=== PATIENT | male | born 1990 | race Caucasian/White ===

== ENCOUNTER 2019-07-10 00:02 | Emergency (ER) | payer BC ==
[2019-07-10 00:09] VITALS: BP 139/89; PULSE 82; RESP 18; TEMP 98.2
[2019-07-10] MEDS ORDERED: RABIES VACCINE (PCEC) 2.5 UNIT KIT IM ONE (00:25)
[2019-07-10] MEDS ORDERED: RABIES IMMUNE GLOB 300 UNIT/ML 5 ML VIAL IM ONE (00:25)
[2019-07-10] MEDS ORDERED: AMOXIC-POT CLAV 875MG STARTER 2 EACH TABLET PO STA (00:57)
--- NOTE | 2019-07-10 00:59 | ED ---
Animal Bite HPI - General Chief Complaint: Animal Bite Stated Complaint: Cat bite Time Seen by Provider: 07/10/19 00:13 Source: patient Mode of arrival: ambulatory Limitations: no limitations - History of Present Illness Initial Comments: 28-year-old male patient presents to the emergency department today for evaluation of a cat bite. Patient states that he was pulling some stray kittens from beneath a home when one bit his left index finger. Patient states he did clean the area. Patient states that his tetanus is up-to-date in the last year. Patient denies any other injuries. Patient is concerned about rabies and would like to be vaccinated.Patient denies any headache, neck pain, back pain, chest pain, shortness of breath, dizziness, weakness, abdominal pain, nausea, vomiting, or difficulties with bowel movements or urination. - Related Data Previous Rx's Medication Instructions Recorded Amoxic-Pot Clav 875-125Mg 1 tab PO Q12HR #14 tablet 07/10/19 [Augmentin 875-125] Allergies Allergy/AdvReac Type Severity Reaction Status Date / Time No Known Allergies Allergy Verified 07/10/19 00:09 Review of Systems ROS Statement: Those systems with pertinent positive or pertinent negative responses have been documented in the HPI. ROS Other: All systems not noted in ROS Statement are negative. Past Medical History Past Medical History: No Reported History History of Any Multi-Drug Resistant Organisms: None Reported Past Surgical History: No Surgical Hx Reported Past Psychological History: No Psychological Hx Reported Smoking Status: Former smoker Past Alcohol Use History: Occasional Past Drug Use History: None Reported General Exam Limitations: no limitations General appearance: alert, in no apparent distress, other (This is a well- developed, well-nourished adult male patient in no acute distress. Vital signs upon presentation are temperature 98.2F, pulse 82, respirations 18, blood pressure 139/89, pulse ox 98% on room air.) Respiratory exam: Present: normal lung sounds bilaterally. Absent: respiratory distress, wheezes, rales, rhonchi, stridor Cardiovascular Exam: Present: regular rate, normal rhythm, normal heart sounds. Absent: systolic murmur, diastolic murmur, rubs, gallop, clicks Extremities exam: Present: full ROM, normal capillary refill, other (There is a puncture wound noted to the left index finger over the distal palmar surface. Skin is otherwise pink, warm, dry. Cap refills less than 3 seconds. Radial pulses 2+ and equal bilaterally.). Absent: normal inspection, tenderness, pedal edema, joint swelling, calf tenderness Neurological exam: Present: alert, oriented X3, CN II-XII intact Psychiatric exam: Present: normal affect, normal mood Skin exam: Present: warm, dry, intact, normal color. Absent: rash Course Vital Signs 07/10/19 00:07 Temperature 98.2 F Pulse Rate 82 Respiratory 18 Rate Blood Pressure 139/89 O2 Sat by Pulse 98 Oximetry Medical Decision Making - Medical Decision Making 28 year-old male patient presented to the emergency department today for evaluation of Bite to the left index finger. Physical examination revealed a puncture wound. Patient was instructed to wash the wound in the sink for 15 minutes with soap and water. He was given rabies immunoglobulin and rabies vaccine. Started on Augmentin for prevention of infection. Tetanus was already up-to-date. Be discharged at this time to follow-up with his primary care physician for recheck in 1-2 days. He is given prescription for further rabies vaccination. Return parameters were discussed in detail. He verbalizes understanding and agrees with this plan. Disposition Clinical Impression: Cat bite, Need for post exposure prophylaxis for rabies Disposition: HOME SELF-CARE Condition: Good Instructions (If sedation given, give patient instructions): Animal Bite (ED), Rabies Vaccine (ED) Additional Instructions: Keep wound clean and dry. Complete antibiotic prescription and full. Return on designated days for repeat rabies injections. Return to the emergency department for any other new, worsening, or concerning symptoms. Prescriptions: Amoxic-Pot Clav 875-125Mg [Augmentin 875-125] 1 tab PO Q12HR #14 tablet Is patient prescribed a controlled substance at d/c from ED?: No Referrals: None,Stated [Primary Care Provider] - 1-2 days Time of Disposition: 00:59
== END 2019-07-10 01:21 | disposition home or self-care (01) ==
LOC: EC 00:02
DX: S61.231A Puncture wound without foreign body of left index finger without damage to nail, initial encounter (principal); Z87.891 Personal history of nicotine dependence; Z23 Encounter for immunization; Z20.3 Contact with and (suspected) exposure to rabies; W55.01XA Bitten by cat, initial encounter
CPT/HCPCS: 90375; 90471; 90675; 96372; 99282

== ENCOUNTER 2020-01-01 21:47 | Emergency (ER) | payer BC ==
[2020-01-01 21:56] VITALS: RESP 18; TEMP 97.8
[2020-01-01] MEDS ORDERED: SODIUM CHLORIDE 0.9% 500 ML 500 ML IV STA (22:24)
[2020-01-01 22:47] LABS: Basophils % (A) 0 %; Eosinophils # (A) 0.1 k/uL (0-0.7); Eosinophils % (A) 1 %; HCT 42.4 % (39.0-53.0); HGB 13.7 gm/dL (13.0-17.5); Lymphocytes # (A) 2.6 k/uL (1.0-4.8); Lymphocytes % (A) 30 %; MCH 29.6 pg (25.0-35.0); MCHC 32.4 g/dL (31.0-37.0); MCV 91.6 fL (80.0-100.0); Mean Platelet Volume 7.2; Monocytes # (A) 0.5 k/uL (0-1.0); Monocytes % (A) 6 %; Neutrophils # (A) 5.3 k/uL (1.3-7.7); Neutrophils % (A) 61 %; Platelet Count 240 k/uL (150-450); RBC 4.63 m/uL (4.30-5.90); RDW 12.1 % (11.5-15.5); WBC 8.7 k/uL (3.8-10.6)
[2020-01-01 22:53] LABS: Appearance,Urine Clear (Clear); Bilirubin,Urine Negative (Negative); Blood,Urine Large (Negative); Color,Urine Yellow; Glucose,Urine (UA) Negative (Negative); Ketones,Urine Negative (Negative); Leukocyte Esterase,Urine Trace (Negative); Mucus,Urine Moderate /hpf; Nitrite,Urine Negative (Negative); Protein,Urine 1+ (Negative); RBC,Urine >182 /hpf (0-5); Specific Gravity,Urine 1.032 (1.001-1.035); Squamous Epithelial Cell,Urine <1 /hpf (0-4); WBC,Urine 8 /hpf (0-5)
[2020-01-01] MEDS ORDERED: ACETAMINOPHEN TAB 325 MG TAB PO STA (22:53)
--- NOTE | 2020-01-01 22:53 | ED ---
General Adult HPI - General Chief complaint: Urogenital Stated complaint: Abdominal pain w/hematuria Time Seen by Provider: 01/01/20 22:04 Source: patient, RN notes reviewed, old records reviewed Mode of arrival: ambulatory Limitations: no limitations - History of Present Illness Initial comments: 29-year-old male patient presents to ED for chief complaint of superpubic abdominal pain as well as bilateral flank pain. Patient reports this began over the weekend Thursday. Patient also reports hematuria. Patient states that the pain radiates down to his right testicle which is causing some discomfort. Denies any concern for STDs. Patient was recently traveling in the area, however denies any cough or fever, denies any known coronavirus contact ex posures. Systemic: Pt denies fatigue, fever/chills, rash. Pt denies weakness, night sweats, weight loss. Neuro: Pt denies headache, visual disturbances, syncope or pre-syncope. HEENT: Pt denies ocular discharge or irritation, otalgia, rhinorrhea, pharyngitis or notable lymphadenopathy. Cardiopulmonary: Pt denies chest pain, SOB, heart palpitations, dyspnea on exertion. Abdominal/GI: Pt denies abdominal pain, n/v/d. : Pt denies dysuria, burning w/ urination, frequency/urgency. Denies new onset urinary or bowel incontinence. MSK: Pt denies myalgia, loss of strength or function in extremities. Neuro: Pt denies new onset weakness, paresthesias. - Related Data Previous Rx's Medication Instructions Recorded Amoxic-Pot Clav 875-125Mg 1 tab PO Q12HR #14 tablet 07/10/19 [Augmentin 875-125] Tamsulosin [Flomax] 0.4 mg PO DAILY #10 cap 01/02/20 Allergies Allergy/AdvReac Type Severity Reaction Status Date / Time No Known Allergies Allergy Verified 07/13/19 13:36 Review of Systems ROS Statement: Those systems with pertinent positive or pertinent negative responses have been documented in the HPI. ROS Other: All systems not noted in ROS Statement are negative. Past Medical History Past Medical History: No Reported History History of Any Multi-Drug Resistant Organisms: None Reported Past Surgical History: No Surgical Hx Reported Past Psychological History: No Psychological Hx Reported Smoking Status: Former smoker Past Alcohol Use History: Occasional Past Drug Use History: None Reported General Exam - General Exam Comments Initial Comments: Constitutional: NAD, AOX3, Pt has pleasant affect. HEENT: NC/AT, trachea midline, neck supple, no lymphadenopathy. Posterior pharynx non erythematous, without exudates. External ears appear normal, without discharge. Mucous membranes moist. Eyes PERRLA, EOM intact. There is no scleral icterus. No pallor noted. Cardiopulmonary: RRR, no murmurs, rubs or gallops, no JVD noted. Lungs CTAB in anterior and posterior jasso. No peripheral edema. Abdominal exam: Abdomen soft and non-distended. Abdomen mildly tender to palpation suprapubic region. No CVA tenderness. Bowel sounds active in LLQ. No hepatosplenomegaly. No ecchymosis Neuro: CN II-XII grossly intact. No nuchal rigidity. No raccon eyes, no shepherd sign, no hemotympanum. No cervical spinal tenderness. MSK: No posterior calf tenderness bilaterally, homans sign negative bilaterally. Posterior tibialis and radial pulse +2 bilaterally. Sensation intact in upper and lower extremities. Full active ROM in upper and lower extremities, 5/5 stregnth. : Right testicle mildly tender to palpation. No masses, cremasteric reflex intact, no blue dot sign. No lesions or ulcerations. Limitations: no limitations Course Vital Signs 01/01/20 21:52 Temperature 97.8 F Pulse Rate 80 Respiratory 18 Rate Blood Pressure 132/78 O2 Sat by Pulse 100 Oximetry Medical Decision Making - Medical Decision Making 29-year-old male patient presents to ED for chief complaint of superpubic abdominal pain as well as bilateral flank pain. Patient reports this began over the weekend Thursday. Patient also reports hematuria. Patient states that the pain radiates down to his right testicle which is causing some discomfort. Denies any concern for STDs. Patient was recently traveling in the area, however denies any cough or fever, denies any known coronavirus contact exposures. Patient also stable, afebrile. Physical exam displayed suprapubic region mildly tender to palpation. Right testicle monetarily palpation. No blue dot sign, cremasteric reflex intact. Laboratory investigations significant for large blood. Ultrasound displayed noticed acute torsion or mass, left- sided simple epididymal cyst, mild hydroceles. CT abdomen pelvis displayed small stretching checklist and right ureterovesicular junction with mild right- sided hydronephrosis. Patient initiated on Flomax, will be discharged to follow up with primary care provider as well as urology follow-up tomorrow and will return to ER if condition worsens. Case discussed with Dr. Reina. - Lab Data Result diagrams: 01/01/20 22:29 01/01/20 22:29 Lab Results 01/01/20 01/01/20 01/01/20 Range/Units 22:29 22:29 22:29 WBC 8.7 (3.8-10.6) k/uL RBC 4.63 (4.30-5.90) m/uL Hgb 13.7 (13.0-17.5) gm/dL Hct 42.4 (39.0-53.0) % MCV 91.6 (80.0-100.0) fL MCH 29.6 (25.0-35.0) pg MCHC 32.4 (31.0-37.0) g/dL RDW 12.1 (11.5-15.5) % Plt Count 240 (150-450) k/uL Neutrophils % 61 % Lymphocytes % 30 % Monocytes % 6 % Eosinophils % 1 % Basophils % 0 % Neutrophils # 5.3 (1.3-7.7) k/uL Lymphocytes # 2.6 (1.0-4.8) k/uL Monocytes # 0.5 (0-1.0) k/uL Eosinophils # 0.1 (0-0.7) k/uL Basophils # 0.0 (0-0.2) k/uL Sodium 139 (137-145) mmol/L Potassium 4.7 (3.5-5.1) mmol/L Chloride 106 (98-107) mmol/L Carbon Dioxide 28 (22-30) mmol/L Anion Gap 5 mmol/L BUN 18 (9-20) mg/dL Creatinine 0.85 (0.66-1.25) mg/dL Est GFR (CKD-EPI)AfAm >90 (>60 ml/min/1.73 sqM) Est GFR (CKD-EPI)NonAf >90 (>60 ml/min/1.73 sqM) Glucose 100 H (74-99) mg/dL Plasma Lactic Acid Chin (0.7-2.0) mmol/L Calcium 9.7 (8.4-10.2) mg/dL Total Bilirubin 0.7 (0.2-1.3) mg/dL AST 28 (17-59) U/L ALT 15 (4-49) U/L Alkaline Phosphatase 64 (38-126) U/L Total Protein 7.5 (6.3-8.2) g/dL Albumin 4.5 (3.5-5.0) g/dL Lipase 40 (23-300) U/L Urine Color Yellow Urine Appearance Clear (Clear) Urine pH 6.0 (5.0-8.0) Ur Specific Donalds 1.032 (1.001-1.035) Urine Protein 1+ H (Negative) Urine Glucose (UA) Negative (Negative) Urine Ketones Negative (Negative) Urine Blood Large H (Negative) Urine Nitrite Negative (Negative) Urine Bilirubin Negative (Negative) Urine Urobilinogen 3.0 (<2.0) mg/dL Ur Leukocyte Esterase Trace H (Negative) Urine RBC >182 H (0-5) /hpf Urine WBC 8 H (0-5) /hpf Ur Squamous Epith Cells <1 (0-4) /hpf Urine Mucus Moderate H (None) /hpf 01/01/20 Range/Units 22:29 WBC (3.8-10.6) k/uL RBC (4.30-5.90) m/uL Hgb (13.0-17.5) gm/dL Hct (39.0-53.0) % MCV (80.0-100.0) fL MCH (25.0-35.0) pg MCHC (31.0-37.0) g/dL RDW (11.5-15.5) % Plt Count (150-450) k/uL Neutrophils % % Lymphocytes % % Monocytes % % Eosinophils % % Basophils % % Neutrophils # (1.3-7.7) k/uL Lymphocytes # (1.0-4.8) k/uL Monocytes # (0-1.0) k/uL Eosinophils # (0-0.7) k/uL Basophils # (0-0.2) k/uL Sodium (137-145) mmol/L Potassium (3.5-5.1) mmol/L Chloride (98-107) mmol/L Carbon Dioxide (22-30) mmol/L Anion Gap mmol/L BUN (9-20) mg/dL Creatinine (0.66-1.25) mg/dL Est GFR (CKD-EPI)AfAm (>60 ml/min/1.73 sqM) Est GFR (CKD-EPI)NonAf (>60 ml/min/1.73 sqM) Glucose (74-99) mg/dL Plasma Lactic Acid Chin 1.1 (0.7-2.0) mmol/L Calcium (8.4-10.2) mg/dL Total Bilirubin (0.2-1.3) mg/dL AST (17-59) U/L ALT (4-49) U/L Alkaline Phosphatase (38-126) U/L Total Protein (6.3-8.2) g/dL Albumin (3.5-5.0) g/dL Lipase (23-300) U/L Urine Color Urine Appearance (Clear) Urine pH (5.0-8.0) Ur Specific Donalds (1.001-1.035) Urine Protein (Negative) Urine Glucose (UA) (Negative) Urine Ketones (Negative) Urine Blood (Negative) Urine Nitrite (Negative) Urine Bilirubin (Negative) Urine Urobilinogen (<2.0) mg/dL Ur Leukocyte Esterase (Negative) Urine RBC (0-5) /hpf Urine WBC (0-5) /hpf Ur Squamous Epith Cells (0-4) /hpf Urine Mucus (None) /hpf Disposition Clinical Impression: Ureteral calculi, Hydrocele Disposition: HOME SELF-CARE Condition: Stable Instructions (If sedation given, give patient instructions): Kidney Stones (ED) Additional Instructions: Follow-up with primary care provider tomorrow, follow with urologist tomorrow. Take medication as directed. Return to ER if condition worsens. Prescriptions: Tamsulosin [Flomax] 0.4 mg PO DAILY #10 cap Is patient prescribed a controlled substance at d/c from ED?: No Referrals: None,Stated [Primary Care Provider] - 1-2 days Elvin Portillo MD [STAFF PHYSICIAN] - 1-2 days
[2020-01-01 22:57] LABS: ALT 15 U/L (4-49); AST 28 U/L (17-59); African American GFR (CKD) >90 (>60 ml/min/1.73 sqM); Albumin 4.5 g/dL (3.5-5.0); Alkaline Phosphatase 64 U/L (38-126); Anion Gap 5 mmol/L; Blood Urea Nitrogen 18 mg/dL (9-20); Calcium 9.7 mg/dL (8.4-10.2); Carbon Dioxide 28 mmol/L (22-30); Chloride 106 mmol/L (98-107); Glucose 100 mg/dL (74-99); Non-African American GFR(CKD) >90 (>60 ml/min/1.73 sqM); Potassium 4.7 mmol/L (3.5-5.1); Sodium 139 mmol/L (137-145); Total Bilirubin 0.7 mg/dL (0.2-1.3); Total Protein 7.5 g/dL (6.3-8.2)
--- NOTE | 2020-01-01 23:04 | US ---
EXAMINATION TYPE: US scrotum with doppler. Grayscale and color Doppler Duplex imaging performed of t pieter scrotum. DATE OF EXAM: 01/01/2020 COMPARISON: NONE CLINICAL HISTORY: testicular pain. Pelvic and bilateral testicular pain x couple days, hematuria. EXAM MEASUREMENTS: TESTICLES: Right Testicle: 3.8 x 2.2 x 2.8 cm Left Testicle: 4.1 x 2.1 x 2.8 cm EPIDIDYMIS HEAD: Right Epididymis: 0.6 x 1.0 x 1.0 cm Left Epididymis: 0.9 x 1.6 x 1.9 cm Doppler performed to assess for testicular vascularity; good bilateral color flow and waveforms are s een. There is no evidence of testicular torsion. Presence of hydroceles: small bilateral Presence of varicoceles: no Left epididymis: 1.0 x 1.1 x 1.2cm cyst IMPRESSION: No testicular torsion or mass. Left side simple epididymal cyst. Mild hydroceles.
--- NOTE | 2020-01-01 23:16 | XR ---
EXAMINATION TYPE: XR KUB DATE OF EXAM: 01/01/2020 COMPARISON: None HISTORY: Abdominal pain TECHNIQUE: 2 views upright FINDINGS: Bowel gas pattern is normal. There is no sign of intestinal obstruction or pneumoperitoneum . Fecal pattern is normal. There are small phleboliths in the pelvis. There are no pathologic calcifi cations over the kidneys. Lung bases are clear. IMPRESSION: Nonacute abdomen.
--- NOTE | 2020-01-01 23:59 | CT ---
EXAMINATION TYPE: CT abdomen pelvis wo con DATE OF EXAM: 01/01/2020 COMPARISON: None HISTORY: Lower Abd Pain, Hematuria CT DLP: 357.20 mGycm Automated exposure control for dose reduction was used. Multiple axial sections were obtained from the diaphragm to the floor the pelvis with no contrast. Lung bases are clear. There is no pleural effusion. Heart size is normal. There is no pericardial eff usion. Liver spleen stomach pancreas gallbladder appear normal. Bile ducts are not dilated. There is no adrenal mass. Kidneys have normal size. There is right side hydronephrosis and hydrourete r with 4 mm calculus at the right ureterovesical junction. Bladder distends smoothly. There is no ing uinal hernia. There is no retroperitoneal adenopathy. Left kidney shows no sign of obstruction. There is 1 mm calculus upper pole left kidney. There is no mesenteric edema. There is no ascites or free air. There is no sign of a bowel obstructio n. Appendix appears normal. There is no free fluid in the pelvis. lumbar vertebra have normal alignment. There is L5 spondylolysis. There is no spondylolisthesis. Bon y pelvis is intact. IMPRESSION: Small obstructing calculus at the right ureterovesical junction with mild right-sided hydronephrosis and hydroureter. L5 spondylolysis. Tiny calculus left kidney.
[2020-01-02] MEDS ORDERED: TAMSULOSIN 0.4 MG CAP.ER.24H PO STA (00:03)
[2020-01-02] MEDS ORDERED: ACET/COD 300 MG/30 MG STARTER PACK 6 TAB BTL PO STA (00:15)
[2020-01-02 00:35] VITALS: BP 134/70; PULSE 82
== END 2020-01-02 00:35 | disposition home or self-care (01) ==
LOC: EC 21:47
DX: N13.2 Hydronephrosis with renal and ureteral calculous obstruction (principal); N43.3 Hydrocele, unspecified; Z87.891 Personal history of nicotine dependence
CPT/HCPCS: 36415; 74018; 74176; 76870; 80053; 81001; 83605; 83690; 85025; 93975; 96360; 96361; 99285

== ENCOUNTER 2020-02-12 16:58 | Emergency (ER) | payer BC ==
[2020-02-12 17:02] VITALS: BP 130/88; PULSE 108; RESP 18; TEMP 98.2
[2020-02-12] MEDS ORDERED: IBUPROFEN 600 MG TAB PO STA (17:21)
--- NOTE | 2020-02-12 17:27 | ED ---
General Adult HPI - General Chief complaint: Extremity Injury, Upper Stated complaint: Wrist injury Time Seen by Provider: 02/12/20 17:00 Source: patient, RN notes reviewed, old records reviewed Mode of arrival: ambulatory Limitations: no limitations - History of Present Illness Initial comments: This is a 29-year-old male who presents emergency Department complaining of right wrist pain. Patient states the pain is in the middle of his wrist on the posterior aspect. Patient states swollen that area as well. Patient states he went to shut a door and he cannot jammed and since then his wrist is hurt. Patient states this happened a few hours prior to arrival. Patient denies any hand pain or finger pain. Patient denies any elbow pain or shoulder pain. She has not taken anything for the pain. - Related Data Previous Rx's Medication Instructions Recorded Amoxic-Pot Clav 875-125Mg 1 tab PO Q12HR #14 tablet 07/10/19 [Augmentin 875-125] Tamsulosin [Flomax] 0.4 mg PO DAILY #10 cap 01/02/20 Ibuprofen [Motrin] 600 mg PO Q6HR PRN #20 tab 02/12/20 Allergies Allergy/AdvReac Type Severity Reaction Status Date / Time No Known Allergies Allergy Verified 02/12/20 17:02 Review of Systems ROS Statement: Those systems with pertinent positive or pertinent negative responses have been documented in the HPI. ROS Other: All systems not noted in ROS Statement are negative. Past Medical History Past Medical History: No Reported History History of Any Multi-Drug Resistant Organisms: None Reported Past Surgical History: No Surgical Hx Reported Past Psychological History: No Psychological Hx Reported Smoking Status: Former smoker Past Alcohol Use History: Occasional Past Drug Use History: None Reported General Exam - General Exam Comments Initial Comments: GENERAL: Patient is well-developed and well-nourished. Patient is nontoxic and well- hydrated and is in mild distress. SKIN: Skin is clear with no lesions or rashes and otherwise unremarkable. NEUROLOGIC: Patient is alert and oriented x3. Cranial nerves II through XII are grossly intact. Motor and sensory are also intact. Normal speech, volume and content. Symmetrical smile. MUSCULOSKELETAL: Normal extremities with adequate strength and full range of motion. Patient has some posterior was tenderness in the middle of his wrist there is some slight swelling in that area as well. There is no tenderness to the hand or fingers PSYCHIATRIC: Normal psychiatric evaluation. Limitations: no limitations Course Vital Signs 02/12/20 17:00 Temperature 98.2 F Pulse Rate 108 H Respiratory 18 Rate Blood Pressure 130/88 O2 Sat by Pulse 99 Oximetry Medical Decision Making - Medical Decision Making X-ray shows no acute fracture. Rate with the patient in an Jonel wrap. He will follow-up with the primary medical care doctor. Disposition Clinical Impression: Wrist sprain Disposition: HOME SELF-CARE Condition: Good Instructions (If sedation given, give patient instructions): Wrist Sprain (ED) Prescriptions: Ibuprofen [Motrin] 600 mg PO Q6HR PRN #20 tab PRN Reason: For pain Is patient prescribed a controlled substance at d/c from ED?: No Referrals: Galilea Ge MD [REFERRING] - 1-2 days Time of Disposition: 18:56
--- NOTE | 2020-02-12 18:19 | XR ---
EXAMINATION TYPE: XR wrist complete RT DATE OF EXAM: 02/12/2020 COMPARISON: NONE HISTORY: Wrist pain TECHNIQUE: 4 views FINDINGS: Carpal bones are intact. I see no fracture nor dislocation. Joint spaces are normal. Metaca rpals are intact. IMPRESSION: Negative right wrist exam.
== END 2020-02-12 19:16 | disposition home or self-care (01) ==
LOC: EC 16:58
DX: S63.501A Unspecified sprain of right wrist, initial encounter (principal); Z87.891 Personal history of nicotine dependence; W23.0XXA Caught, crushed, jammed, or pinched between moving objects, initial encounter; Y93.89 Activity, other specified
CPT/HCPCS: 99284